=== PATIENT | female | born 1975 | race Caucasian/White ===

== ENCOUNTER 2016-09-11 15:10 | Day surgery (SDC) | payer OTHER ==
[~2016-09-11] VITALS: Ht 162.6 cm; Wt 50.0 kg
[~2016-09-11 15:10] MED LIST: ACIPHEX20 MG PO; ASPIR-TRIN325 M1 PO; BACTRIM,SEPT1 TABLET PO; CELEXA40 MG PO; CIPRO500 MG PO; KEFLEX500 MG PO; METHADONE10 MG PO; NAPROXEN500 MG PO; NOHOMEMEDS; PERCOCET 5/31 TABLET PO; VALIUM2 MG PO; ZANTAC150 MG PO; ZOFRAN ODT4 MG PO; antibiotic PO
[2016-09-11 15:49] VITALS: BP 105/60
[2016-09-11 17:03] LABS: METH RESISTANT S AUREUS PCR NEGATIVE (NEGATIVE); PROBE CHECK PASS; SPECIMEN PROCESSING CONTROL PASS
[2016-09-11 22:15] VITALS: BP 110/62
[2016-09-11 22:49] VITALS: BP 108/63
== END 2016-09-11 22:56 | disposition home or self-care (01) ==
LOC: SDC 15:10
PROVIDERS: Surgery
DX: L02.416 Cutaneous abscess of left lower limb (principal); T81.4XXA Infection following a procedure, initial encounter; S91.022S Laceration with foreign body, left ankle, sequela; F17.200 Nicotine dependence, unspecified, uncomplicated; Z88.5 Allergy status to narcotic agent; Z80.3 Family history of malignant neoplasm of breast; Z80.8 Family history of malignant neoplasm of other organs or systems; Z80.41 Family history of malignant neoplasm of ovary; Y84.8 Other medical procedures as the cause of abnormal reaction of the patient, or of later complication, without mention of misadventure at the time of the procedure
CPT/HCPCS: 87641; J0171; J0690; J1100; J2250; J2405; J3010

== ENCOUNTER 2017-02-26 13:51 | Emergency (ER) | payer OTHER ==
[~2017-02-26] VITALS: Ht 162.6 cm; Wt 42.0 kg
[2017-02-26 14:11] VITALS: BP 126/76
[2017-02-26 15:01] LABS: ADD MIUA? NO; BILIRUBIN NEGATIVE; BLOOD NEGATIVE; COLOR YELLOW ((YELLOW)); GLUCOSE (STRIP) NEGATIVE; KETONES NEGATIVE; LEUKOCYTES NEGATIVE; NITRITE NEGATIVE; PROTEIN (STRIP) 30; SPECIFIC GRAVITY 1.018 (1.000-1.030); UCUL ADDED? NO; UROBILINOGEN 0.2 MG/DL (0.2-1.0)
[2017-02-26 15:23] LABS: HEMATOCRIT 38.2 % (36.0-46.0); MCH 32.7 PG (29.0-34.0); MCHC 34.6 G/DL (30.0-36.0); MCV 94.6 FL (83-99); PLATELET COUNT 236 K/uL (156-360); RBC DIS.WIDTH-CV 12.7 % (11.8-14.6); RBC DIS.WIDTH-SD 44.1 % (39-53); RED BLOOD COUNT 4.04 M/uL (3.80-5.20); WHITE BLOOD COUNT 6.7 K/uL (4.1-10.2)
[2017-02-26 15:37] LABS: CHLORIDE 107 mEq/L (99-109); POTASSIUM 3.8 mEq/L (3.7-5.4); SODIUM 141 mEq/L (136-147)
[2017-02-26 15:39] LABS: GLUCOSE 114 mg/dL (70-99)
[2017-02-26 15:40] LABS: ANION GAP 10 MEQ/L (2-14)
[2017-02-26 15:41] LABS: TOTAL BILIRUBIN 0.3 mg/dL (0.0-1.0)
[2017-02-26 15:43] LABS: ALKALINE PHOSPHATASE 60 IU/L (3-129); GFR ESTIMATE (CALCULATED) 58 mL/min/
[2017-02-26 15:44] LABS: UREA NITROGEN (BUN) 15 mg/dL (9-23)
[2017-02-26 15:52] LABS: QUANTITATIVE HCG < 4.0 MIU/ML
== END 2017-02-26 18:30 | disposition left against medical advice (07) ==
LOC: EME 13:51
DX: R10.13 Epigastric pain (principal); Z53.21 Procedure and treatment not carried out due to patient leaving prior to being seen by health care provider
CPT/HCPCS: 80053; 81003; 84702; 85027; 99281; 99284

== ENCOUNTER 2017-11-17 11:52 | Emergency (ER) | payer OTHER ==
[~2017-11-17] VITALS: Ht 162.6 cm; Wt 50.8 kg
[2017-11-17 15:30] VITALS: BP 116/69
== END 2017-11-17 15:39 | disposition home or self-care (01) ==
LOC: EME 11:52
PROC: 0H9DXZZ Drainage of Right Lower Arm Skin, External Approach (ICD-10-PCS; principal; 2017-11-17)
DX: S09.90XA Unspecified injury of head, initial encounter (principal); S13.9XXA Sprain of joints and ligaments of unspecified parts of neck, initial encounter; L02.413 Cutaneous abscess of right upper limb; V49.50XA Passenger injured in collision with unspecified motor vehicles in traffic accident, initial encounter; Y92.410 Unspecified street and highway as the place of occurrence of the external cause; F17.200 Nicotine dependence, unspecified, uncomplicated; Z88.5 Allergy status to narcotic agent; Z88.6 Allergy status to analgesic agent
CPT/HCPCS: 70450; 72125; 99281; 99284

== ENCOUNTER 2017-12-19 00:01 | Emergency (ER) | payer OTHER ==
[~2017-12-19] VITALS: Ht 162.6 cm; Wt 48.0 kg
[2017-12-19] MEDS ORDERED: PERCOCET 5/31 TABLET PO (01:38)
[2017-12-19 03:16] VITALS: BP 124/92
== END 2017-12-19 03:17 | disposition home or self-care (01) ==
LOC: EME 00:01
PROC: 2W3DX1Z Immobilization of Left Lower Arm using Splint (ICD-10-PCS; principal; 2017-12-19)
DX: S52.502A Unspecified fracture of the lower end of left radius, initial encounter for closed fracture (principal); W03.XXXA Other fall on same level due to collision with another person, initial encounter; Z88.5 Allergy status to narcotic agent; Z88.6 Allergy status to analgesic agent
CPT/HCPCS: 73090; 73110; 99281; 99283

== ENCOUNTER 2017-12-20 14:50 | Emergency (ER) | payer OTHER ==
[~2017-12-20] VITALS: Ht 162.6 cm; Wt 49.8 kg
[2017-12-20 15:00] VITALS: BP 133/80
== END 2017-12-20 16:19 | disposition left against medical advice (07) ==
LOC: EME 14:50
DX: M79.602 Pain in left arm (principal); Z53.21 Procedure and treatment not carried out due to patient leaving prior to being seen by health care provider